=== PATIENT | female | born 1980 | race Caucasian/White ===

== ENCOUNTER 2022-10-21 19:32 | Emergency (ER) | payer SELFPAY ==
[2022-10-21 19:52] VITALS: BP 139/91; PULSE 93; RESP 20; TEMP 98.7
[2022-10-21] MEDS ORDERED: FLUCONAZOLE 150 MG TAB PO STA (20:55)
--- NOTE | 2022-10-21 21:09 | ED ---
Skin/Abscess/FB HPI - General Chief complaint: Skin/Abscess/Foreign Body Stated complaint: Rash on body Time Seen by Provider: 10/21/22 20:30 Source: patient Mode of arrival: ambulatory Limitations: no limitations - History of Present Illness Initial comments: Patient is a 42-year-old male who presents to the emergency department for evaluation of rash. Started on his abdomen one month ago and has been spreading to his extremities. Patient states the rash is itchy. It is not painful. He has been using hydrocortisone cream however the rash continues to spread. No fever, chills, shortness of breath, throat swelling. Patient does report a history of athlete's foot recently. He denies any use of new hygiene products or soaps. MD complaint: rash - Related Data Previous Rx's Medication Instructions Recorded Fluconazole 150 mg PO ONCE #1 tab 10/21/22 hydrOXYzine HCL [Atarax] 25 mg PO TID PRN #21 tab 10/21/22 Allergies Allergy/AdvReac Type Severity Reaction Status Date / Time latex Allergy Rash/Hives Verified 09/30/22 14:05 nickel Allergy Rash/Hives Verified 09/30/22 14:05 Review of Systems ROS Statement: Those systems with pertinent positive or pertinent negative responses have been documented in the HPI. ROS Other: All systems not noted in ROS Statement are negative. Past Medical History Past Medical History: No Reported History History of Any Multi-Drug Resistant Organisms: None Reported Past Surgical History: No Surgical Hx Reported Past Psychological History: No Psychological Hx Reported Smoking Status: Current every day smoker Past Alcohol Use History: None Reported Past Drug Use History: None Reported General Exam Limitations: no limitations General appearance: alert, in no apparent distress Respiratory exam: Present: normal lung sounds bilaterally. Absent: respiratory distress, wheezes, rales, rhonchi, stridor Cardiovascular Exam: Present: regular rate, normal rhythm, normal heart sounds. Absent: systolic murmur, diastolic murmur, rubs, gallop, clicks Neurological exam: Present: alert, oriented X3, CN II-XII intact Psychiatric exam: Present: normal affect, normal mood Skin exam: Present: warm, dry, intact, normal color, rash (Erythematous patches, some with central clearing on the abdomen. There are a few lesions on the bilateral wrists and right leg with prominent central clearing) Course Vital Signs 10/21/22 19:48 Temperature 98.7 F Pulse Rate 93 Respiratory 20 Rate Blood Pressure 139/91 O2 Sat by Pulse 96 Oximetry Medical Decision Making - Medical Decision Making Was pt. sent in by a medical professional or institution (GURINDER Richardson, MANAGER TRAINEE, urgent care, hospital, or [facility]...) When possible be specific @ -[No] Did you speak to anyone other than the patient for history (EMS, parent, family, police, friend...)? What history was obtained from this source @ -[No] Did you review nursing and triage notes (agree or disagree)? Why? @ -[I reviewed and agree with nursing and triage notes] Were old charts reviewed (outside hosp., previous admission, EMS record, old EKG, old radiological studies, urgent care reports/EKG's, [facility] records)? Report findings @ -[No old charts were reviewed] Differential Diagnosis (chest pain, altered mental status, abdominal pain women, abdominal pain men, vaginal bleeding, weakness, fever, dyspnea, syncope, headache, dizziness, GI bleed, back pain, seizure, CVA, palpatations, mental health)? @ -[not applicable] EKG interpreted by me (3pts min.). @ -[As above] X-rays interpreted by me (1pt min.). @ -[None done] CT interpreted by me (1pt min.). @ -[None done] U/S interpreted by me (1pt. min.). @ -[None done] What testing was considered but not performed or refused? (CT, X-rays, U/S, labs)? Why? @ -[None] What meds were considered but not given or refused? Why? @ -[None] Did you discuss the management of the patient with other professionals (professionals i.e. GURINDER Richardson, MANAGER TRAINEE, lab, RT, psych nurse, social media strategist, cnmt, teacher, placement officer, patient case manager)? Give summary @ -[No] Was smoking cessation discussed for >3mins.? @ -[No] Was critical care preformed (if so, how long)? @ -[No] Were there social determinants of health that impacted care today? How? (Homelessness, low income, unemployed, alcoholism, drug addiction, transportation, low edu. Level, literacy, decrease access to med. care, half-way, rehab)? @ -[No] Was there de-escalation of care discussed even if they declined (Discuss DNR or withdrawal of care, Hospice)? DNR status @ -[No] What co-morbidities impacted this encounter? (DM, HTN, Smoking, COPD, CAD, Cancer, CVA, ARF, Chemo, Hep., AIDS, mental health diagnosis, sleep apnea, morbid obesity)? @ -[None] Was patient admitted / discharged? Hospital course, mention meds given and route, prescriptions, significant lab abnormalities, going to OR and other pertinent info. @ -Patient presenting with rash. No hypoxia, no airway involvement. There is concern for fungal infection. Patient will be treated with oral antifungals for widespread infection. He is discharged with Second dose and hydroxyzine. He is referred to animal nursery worker. Undiagnosed new problem with uncertain prognosis? @ -[No] Drug Therapy requiring intensive monitoring for toxicity (Heparin, Nitro, Insulin, Cardizem)? @ -[No] Were any procedures done? @ -[No] Diagnosis/symptom? @ -tinea corporis Acute, or Chronic, or Acute on Chronic? @ -acute Uncomplicated (without systemic symptoms) or Complicated (systemic symptoms)? @ -uncomplicated Side effects of treatment? @ -[No] Exacerbation, Progression, or Severe Exacerbation? @ -[No] Poses a threat to life or bodily function? How? (Chest pain, [place], [place], pneumonia, PE, COPD, DKA, ARF, appy, cholecystitis, CVA, Diverticulitis, Homicidal, Suicidal, threat to staff... and all critical care pts) @ -[No] Dr. Holder is my attending Disposition Clinical Impression: Tinea corporis Disposition: HOME SELF-CARE Condition: Good Instructions (If sedation given, give patient instructions): Tinea Corporis (ED) Additional Instructions: Please take second dose in one week. Take hydroxyzine for any itching. Do not drink alcohol after machinery while taking hydroxyzine as it can make you sleepy. Follow-up with dermatology in 1-2 days. Return to the emergency department if you experience new, concerning, or worsening symptoms. Prescriptions: hydrOXYzine HCL [Atarax] 25 mg PO TID PRN #21 tab PRN Reason: Itching Fluconazole 150 mg PO ONCE #1 tab Is patient prescribed a controlled substance at d/c from ED?: No Referrals: None,Stated [Primary Care Provider] - 1-2 days Mary Al MD [STAFF PHYSICIAN] - 1-2 days
== END 2022-10-21 21:25 | disposition home or self-care (01) ==
LOC: EC 19:32
DX: B35.4 Tinea corporis (principal); F17.200 Nicotine dependence, unspecified, uncomplicated
CPT/HCPCS: 99282

== ENCOUNTER 2022-11-22 14:30 | Emergency (ER) | payer OTHER ==
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
[2022-11-22 17:38] VITALS: BP 147/99; PULSE 82; RESP 16; TEMP 98.3
== END 2022-11-22 17:36 | disposition home or self-care (01) ==
LOC: EC 14:30
DX: L05.91 Pilonidal cyst without abscess (principal); R09.81 Nasal congestion; F17.200 Nicotine dependence, unspecified, uncomplicated; Z91.040 Latex allergy status; Z88.8 Allergy status to other drugs, medicaments and biological substances
CPT/HCPCS: 10080; 99284